=== PATIENT | female | born 2000 | race Hispanic/Latino ===

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

== ENCOUNTER 2023-03-09 20:05 | Emergency (ER) | payer BC, OTHER ==
[~2023-03-09] VITALS: Ht 160 cm; Wt 54.4 kg
[2023-03-09 20:15] VITALS: BP 117/70; PULSE 93; RESP 18
[2023-03-09 20:56] LABS: APPEARANCE,URINE CLEAR (CLEAR); BILIRUBIN,URINE NEGATIVE (NEGATIVE); COLOR,URINE YELLOW (YELLOW); GLUCOSE, URINE (UA) NEGATIVE (NEGATIVE); KETONES,URINE NEGATIVE (NEGATIVE); LEUKOCYTE ESTERASE ,URINE NEGATIVE Leu/uL (NEGATIVE); NITRATE,URINE NEGATIVE (NEGATIVE); OCCULT BLOOD,URINE NEGATIVE (NEGATIVE); PROTEIN,URINE 50 mg/dL (NEGATIVE); UROBILINOGEN,URINE 0.2 mg/dL (0.2-1.0)
[2023-03-09 20:57] LABS: ADD UA MICROSCOPIC YES
[2023-03-09 20:58] LABS: BACTERIA,URINE RARE /HPF (None Seen); MUCUS,URINE FEW LPF (None Seen); SQUAMOUS EPITHELIAL CELL,UR MOD /HPF (0-2)
[2023-03-09 21:03] LABS: HCG,QUALITATIVE URINE NEGATIVE (NEGATIVE)
[2023-03-09 21:10] LABS: RAPID GROUP A STREP negative (NEGATIVE)
[2023-03-09 21:19] LABS: SARS-CoV-2, RNA, NAAT NEGATIVE SARS CoV-2 (NEGATIVE)
[2023-03-09 21:21] LABS: INFLUENZA TYPE A Negative For Type A (NEGATIVE)
[2023-03-09 21:29] LABS: INFLUENZA TYPE B Positive For Type B (NEGATIVE)
[2023-03-09] MEDS ORDERED: NAPR500T6 PO (21:39)
[2023-03-09] MEDS ORDERED: OSEL75 PO (21:39)
== END 2023-03-09 21:51 | disposition home or self-care (01) ==
LOC: EDH 20:05
DX: J10.1 Influenza due to other identified influenza virus with other respiratory manifestations (principal); B97.89 Other viral agents as the cause of diseases classified elsewhere; Z20.822 Contact with and (suspected) exposure to COVID-19
CPT/HCPCS: 99283; 87635; 87880; 87804 ×2; 81001; 81025; C9803